=== PATIENT | male | born 1990 | race African-American/Black ===

== ENCOUNTER 2024-05-05 12:54 | Emergency (ER) | payer SELFPAY ==
[~2024-05-05] VITALS: Ht 175.3 cm; Wt 98.0 kg
[2024-05-05 13:15] VITALS: O2SAT 98
[2024-05-05] MEDS ORDERED: IBUP-2030 MT (15:46)
[2024-05-05 16:19] VITALS: BP 148/72; PULSE 88; RESP 18; TEMP 36.8; O2SAT 98
== END 2024-05-05 16:22 | disposition home or self-care (01) ==
LOC: ER 12:54
DX: S92.311A Displaced fracture of first metatarsal bone, right foot, initial encounter for closed fracture (principal); X58.XXXA Exposure to other specified factors, initial encounter; Y93.89 Activity, other specified; Y92.89 Other specified places as the place of occurrence of the external cause; Y99.8 Other external cause status
CPT/HCPCS: 29515; 73630; 99283

== ENCOUNTER 2025-01-06 12:12 | Emergency (ER) | payer MEDICAID ==
[~2025-01-06] VITALS: Ht 175.3 cm; Wt 99.0 kg
[~2025-01-06 12:12] MED LIST: IBUP-2030 MT
[2025-01-06 12:28] VITALS: O2SAT 99
[2025-01-06] MEDS: HYDROCODONE/ACETAMINOPHEN 5/325MG TABLET PO ONE (13:18)
[2025-01-06] MEDS: IBUPROFEN 800MG TABLET PO ONE (13:18)
[2025-01-06] MEDS ORDERED: IBUP-2030 MT (13:46)
[2025-01-06 14:06] VITALS: BP 120/81; PULSE 88; RESP 15; TEMP 37.1; O2SAT 99
== END 2025-01-06 14:30 | disposition home or self-care (01) ==
LOC: ER 12:12
DX: S82.832A Other fracture of upper and lower end of left fibula, initial encounter for closed fracture (principal); Z79.899 Other long term (current) drug therapy; X50.1XXA Overexertion from prolonged static or awkward postures, initial encounter; X58.XXXA Exposure to other specified factors, initial encounter; Y93.89 Activity, other specified; Y92.89 Other specified places as the place of occurrence of the external cause; Y99.8 Other external cause status
CPT/HCPCS: 29515; 73590; 73610; 73630; 99284